=== PATIENT | male | born 1975 | race Caucasian/White ===

== ENCOUNTER 2016-05-01 09:19 | Day surgery (SDC) | payer BC ==
[2016-05-01] VITALS (11 sets, daily range): BP systolic 100–135; BP diastolic 58–80; Ht 182.9 cm; Wt 79.5 kg
[~2016-05-01] VITALS: Ht 182.9 cm; Wt 79.5 kg
[2016-05-01 09:54] LABS: BASOPHILS 0.2 % (0.0-2.0); EOSINOPHILS 0.1 % (0-7); HEMATOCRIT 38.7 % (42.0-54.0); HEMOGLOBIN 13.3 g/dL (13.5-17.5); IMMATURE GRANULOCYTES 0.2 % (0-5); LYMPHOCYTES 13.6 % (15-50); MCHC 34.4 g/dL (31.0-37.0); MCV 90.2 fL (80.0-100.0); MEAN PLATELET VOLUME 10.5 fL (7.4-10.4); MONOCYTES 6.6 % (2-11); NEUTROPHILS 79.3 % (40-80); PLATELET COUNT 218 10x3/uL (130-400); RBC 4.29 10x6/uL (4.20-6.10); RDW 13.2 % (11.5-14.5); WBC 9.4 10x3/uL (4.8-10.8)
[2016-05-01 09:58] LABS: APPEARANCE CLEAR (CLEAR); BILIRUBIN NEGATIVE (NEGATIVE); COLOR YELLOW (YELLOW); GLUCOSE NEGATIVE (NEGATIVE); KETONE NEGATIVE (NEGATIVE); LEUKOCYTE ESTERASE TRACE (NEGATIVE); NITRITE NEGATIVE (NEGATIVE); PROTEIN NEGATIVE (NEGATIVE); UROBILINOGEN NORMAL (NORMAL)
[2016-05-01 09:59] LABS: BACTERIA FEW /hpf (NONE SEEN); EPITHELIAL CELLS 0-5 /hpf (0-5); HYALINE CAST 0-5 /lpf (NONE SEEN); MUCUS <1+ /lpf (NONE SEEN); RED CELLS - URINE 0-5 /hpf (0-5); WHITE CELLS - URINE 0-5 /hpf (0-5)
[2016-05-01 10:01] LABS: INR 0.95 (0.85-1.17); PROTIME 12.5 SECONDS (11.6-15.0)
[2016-05-01 10:08] LABS: ALBUMIN 4.1 g/dL (3.4-5.0); ALKALINE PHOSPHATASE 99 U/L (46-116); ALT (SGPT) 28 U/L (10-68); CALC OSMOLALITY 279 mosm/kg (275-300); CALCIUM 8.7 mg/dL (8.5-10.1); CHLORIDE - SERUM 103 mmol/L (98-107); CREATININE - SERUM 0.7 mg/dL (0.6-1.3); GLUCOSE 92 mg/dL (74-106); POTASSIUM - SERUM 4.6 mmol/L (3.5-5.1); PROTEIN - SERUM 7.4 g/dL (6.4-8.2); SODIUM 141 mmol/L (136-145); UREA NITROGEN 9 mg/dL (7-18); eGFR NON AFRICAN AMERICAN > 90 mL/min (90-120)
--- NOTE | 2016-05-01 10:25 | NUR ---
PATIENT RECEIVED TO FLOOR FROM ER VIA STRETCHER. TRANSFERRED TO BED AND POSITIONED FOR COMFORT. ORIENTED TO ROOM. PARENTS PRESENT. NO SIGNS OF DISTRESS NOTED. A/O X4. SIDE RAILS UP X2. BED IN LOW POSITION. CALL LIGHT IN REACH.
[2016-05-01] MEDS ORDERED: CELEXA20 MG PO (10:32)
--- NOTE | 2016-05-01 10:52 | NUR ---
PATIENT ALERT IN BED. IVF AND DILAUDID SCIENTIFIC GLASS BLOWER SET ACCORDING TO ORDERS. IV TO LEFT FOREARM PATENT. FLUSHES EASY. INSTRUCTED ON USE OF SCIENTIFIC GLASS BLOWER. STATES UNDERSTANDING. CALL LIGHT AND SCIENTIFIC GLASS BLOWER BUTTON IN REACH. SIDE RAILS UP X2. BED IN LOW POSITION. CALL LIGHT IN REACH.
--- NOTE | 2016-05-01 12:22 | NUR ---
PATIENT OFF FLOOR TO SURGERY VIA BED.
--- NOTE | 2016-05-01 14:52 | NUR ---
PATIENT BACK TO ROOM FROM PACU VIA BED. NO SIGNS OF DISTRESS NOTED. VITAL SIGNS STABLE. A/O X4. DENIES PAIN. DRESSING TO LEFT LEG CLEAN,DRY AND INTACT. ICE PACK IN PLACE. SCD TO RIGHT LEG. SIDE RAILS UP X2. BED IN LOW POSITION. CALL LIGHT IN REACH. FAMILY PRESENT.
--- NOTE | 2016-05-01 15:40 | NUR ---
PATIENT IN MID PURI POSITION RESTING QUIETLY. VITAL SIGNS STABLE. DENIES NEEDS. SIDE RAILS UP X2. BED IN LOW POSITION. CALL LIGHT IN REACH.
--- NOTE | 2016-05-01 17:25 | NUR ---
PATIENT ALERT IN BED WATCHING TV. NO SIGNS OF DISTRESS NOTED. DENIES PAIN. SIDE RAILS UP X2. BED IN LOW POSITION. CALL LIGHT IN REACH.
--- NOTE | 2016-05-01 20:53 | NUR ---
PT LAYING IN BED WITH AT BEDSIDE ASSISTING PT WITH BRUSHING TEETH. NO DISTRESS OBSERVED AT THIS TIME CALL LIGHT IN REACH SRX2 BED LOW AND LOCKED RESPERATIONS EVEN AND UNLABORED ON ROOM AIR. WILL MONITOR
[2016-05-02 04:00] VITALS: BP 121/79
--- NOTE | 2016-05-02 05:44 | NUR ---
PATIENT STABLE, VSS, AFEBRILE, 5/10 PAIN TO LEFT LOWER LEG. LFA PIV INFUSING 1/2NS@75 THROUGHOUT THE NIGHT WITH A DILADID FILM SORTER 0.2/12/28. HE IS ABLE TO WIGGLE HIS TOES, HAS SENSATION BACK, WITH A FULL DORSALIS PULSE.
[2016-05-02] MEDS ORDERED: OXYCODONE HCL5 MG PO (08:00)
--- NOTE | 2016-05-02 08:01 | NUR ---
PT AWAKE AND ALERT ORINETED X 3 LUNGS CLAER BILATERALY SURGICAL DRESSING INTACT TO LLE FROM ORIF OF TIB FIB FX LLE. CALL LIGHT IN REACH SIDE RAILS UP X 2 SPOUSE AT BEDSIDE. BUTADIENE CONVERTER OPERATOR FOR PAIN CONTROL. WILL MONITOR.
[2016-05-02 08:10] VITALS: BP 110/65
--- NOTE | 2016-05-02 08:33 | NUR ---
Patient Name: ISAURO NUÑEZ Admission Status: ER Accout number: [id number] Admission Date: 05-01-2016 : 1975 Admission Diagnosis: Attending: EDMOND Current LOS: 1 Anticipated DC Date: 05-02-2016 Planned Disposition: Home Primary Insurance: [employer] BLUE PPO Discharge Planning Comments: CM MET WITH PATIENT AND (JORDEN) REGARDING D/C NEEDS AND PLANS. PATIENTS STATED SOMEONE IN THE FAMILY WILL PICK HIM UP TODAY AT DISCHARGE. SHE STATED THEY HAVE TO FIGURE WHICH VEHICLE WOULD BE BETTER FOR PATIENT TO RIDE HOME IN. PATIENT HAS 8 STEPS W/RAILS TO ENTER HOME AND NO STAIRS INSIDE. PATIENTS PCP IS DR. CAT IN [place] AND PHARMACY IS [facility] IN [place]. PATIENT IS INDEPENDENT WITH HIS CARE AND HAS NO DME AT HOME. PATIENT HAS NEVER HAD HOME HEALTH AND DOES NOT FEEL LIKE HE NEEDS IT AT DISCHARGE. CM WILL CONTINUE TO FOLLOW PATIENT WITH D/C NEEDS AND PLANS. PCP [facility] [place]- [phone] JORDEN () [phone] [facility] Facility Supervisor: Venus Ervin Is the patient Alert and Oriented? Yes 0 * How many steps to enter\exit or inside your home? 8 W/RAILS 0 * PCP DR. CAT IN [place] 0 * Pharmacy [facility] IN [place] 0 * Preadmission Environment Home with Family 0 * ADLs Independent 0 * Equipment None 0 * List name and contact numbers for known caregivers / representatives who currently or will assist patient after discharge: JORDEN () [phone] 0 * Community resources currently utilized None 0 * Additional services required to return to the preadmission environment? Yes 0 * Can the patient safely return to the preadmission environment? Yes 0 * Has this patient been hospitalized within the prior 30 days at any hospital? No 0 Grand Total: 0
[2016-05-02] MEDS ORDERED: ASPIRIN325 MG PO (09:51)
[2016-05-02 11:31] VITALS: BP 114/67
--- NOTE | 2016-05-02 14:24 | NUR ---
PT WAS GIVEN 1 TIME DOSE OF OXY IR PER ORDER FOR COMPLAINT OF PAIN RESTING WITH EYES CLOSED AT THIS TIME. PT TO BE DISCHARGED AT THIS ITME. DISCHARGE INSTRUCTIONSGIVEN PIV D/C PT AND SPOUSE EXPRESSED UNDERSTANDING OF NON WT BEARING STATUS WELL FOLOW UP APPTS.
--- NOTE | 2016-05-02 15:19 | NUR ---
PT DISCHARGED PER ORDER AT THIS TIME.
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
== END 2016-05-02 15:19 | disposition home or self-care (01) ==
LOC: OBSVTIME → D.OPS 09:19 → D.MS 09:19 → D.ER 10:08 → OBSVTIME 10:09 → EDSTATUS 10:59 → D.MS 14:28 → D.OPS 05-02 15:19 → D.MS 05-02 15:19
PROVIDERS: Emergency Medicine; Orthopaedic Surgery Sports Medicine
DX: S82.202A Unspecified fracture of shaft of left tibia, initial encounter for closed fracture (principal); S82.832A Other fracture of upper and lower end of left fibula, initial encounter for closed fracture; Z79.899 Other long term (current) drug therapy; F17.200 Nicotine dependence, unspecified, uncomplicated